=== PATIENT | female | born 2000 | race Caucasian/White ===

== ENCOUNTER 2020-02-08 16:50 | Emergency (ER) | payer OTHER, SELFPAY ==
[2020-02-08 17:42] LABS: Absolute Lymphocytes (CBC) 2.5 K/uL (0.7-4.9); Basophils % 0.9 % (0-1.3); Hematocrit 45.3 % (36.0-45.0); Lymphocytes % 36.1 % (15.3-44.8); RBC Red Blood Cell Count 5.07 M/uL (3.86-4.86)
[2020-02-08 18:02] LABS: ALT/SGPT 24 U/L (12-78); AST/SGOT 15 U/L (15-37); Albumin 4.3 g/dL (3.4-5.0); Alkaline Phosphatase 89 U/L (45-117); BUN Blood Urea Nitrogen 11 mg/dL (7-18); Bicarbonate 27 mmol/L (21-32); Bilirubin Direct 0.1 mg/dL (0-0.2); Bilirubin Total 0.4 mg/dL (0.2-1.0); Glucose Level 91 mg/dL (74-106); Lipase 82 U/L (73-393); Potassium 4.1 mmol/L (3.5-5.1); Sodium Level 139 mmol/L (136-145)
[2020-02-08 18:13] LABS: Urine Blood NEGATIVE (NEG); Urine Glucose NEGATIVE (NEG); Urine Protein NEGATIVE (NEG); Urine pH 5.5 (5.0-7.0)
[2020-02-08 18:13] LABS: Urine Amorphous Sediment 1+ /HPF (NONE SEEN); Urine Bacteria 20-50 /HPF (<20); Urine Culture Reflex Order REFLEXED; Urine Mucus 3+ /HPF (NONE SEEN); Urine RBC <5 /HPF (NONE SEEN)
--- NOTE | 2020-02-08 18:59 | RAD REPORT ---
EXAM DESCRIPTION: CT - Abdomen Pelvis W Contrast - 02/08/2020 6:31 pm CLINICAL HISTORY: RLQ abd pain COMPARISON: No comparisons TECHNIQUE: Biphasic, helical CT imaging of the abdomen and pelvis was performed following 100 ml non -ionic IV contrast. No oral contrast. All CT scans are performed using dose optimization technique as appropriate and may include automated exposure control or mA/KV adjustment according to patient size. FINDINGS: No suspicious findings in the lung bases. The liver, spleen, and pancreas show no suspicious findings. Gallbladder and biliary tree are also wi thout suspicious finding. Symmetric renal function is seen with no hydronephrosis or suspicious renal mass. No pyelonephritis o r acute parenchymal process. No bladder abnormalities. No adrenal abnormalities. Uterus and ovaries s how no suspicious findings. No gastric dilatation or wall thickening. No dilated large or small bowel loops. No appendicitis find ings. A few small mesenteric lymph nodes are present. There is a trace amount of stranding in the fat adjacent to the ascending colon. This is a minimal finding but could indicate a very mild epiploic a ppendagitis. No free air or pneumatosis. No abnormal free fluid collection. No hernia, mass or bulky lymphadenopathy. No suspicious bony findings. IMPRESSION: No appendicitis or surgically emergent finding. Patient has a few mesenteric lymph nodes in the right lower quadrant. Patient has a trace amount of stranding adjacent to the ascending colon. This is a very minimal find ing but may reflect a very mild epiploic appendagitis.
--- NOTE | 2020-02-08 19:43 | ER ---
Nurse's Notes [facility] Name: Belinda Partida Age: 19 yrs Sex: Female : 2000 Arrival Date: 02/08/2020 Time: 16:53 Bed 14 Private MD: Diagnosis: Unspecified abdominal pain Presentation: 02/07 17:00 Chief complaint: Patient states: RLQ pain radiating to back started 3 days ago, now iw radiating to leg , denies pain with urination, +nausea, no vomiting. Coronavirus screen: Patient denies fever greater than 100.4F, cough, shortness of breath, or difficulty breathing. Proceed with normal triage process. Ebola Screen: Patient negative for fever greater than or equal to 101.5 degrees Fahrenheit, and additional compatible Ebola Virus Disease symptoms Patient denies exposure to infectious person. Patient denies travel to an Ebola-affected area in the 21 days before illness onset. No symptoms or risks identified at this time. Initial Sepsis Screen: Does the patient meet any 2 criteria? No. Patient's initial sepsis screen is negative. Does the patient have a suspected source of infection? No. Patient's initial sepsis screen is negative. Risk Assessment: Do you want to hurt yourself or someone else? Patient reports no desire to harm self or others. 17:00 Method Of Arrival: Ambulatory iw 17:00 Acuity: RO 3 iw 17:41 Onset of symptoms was February 06, 2020. vc Triage Assessment: 17:39 General: Appears in no apparent distress. uncomfortable, Behavior is calm, cooperative, vc appropriate for age. Pain: Complains of pain in abdomen Pain radiates to back and down right leg. 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 - Social history:: Smoking status: Patient denies any tobacco usage or history of. - Family history:: not pertinent. - Hospitalizations: : No recent hospitalization is reported. Screenin:38 Abuse screen: Denies threats or abuse. Nutritional screening: No deficits noted. vc Tuberculosis screening: No symptoms or risk factors identified. Fall Risk None identified. Assessment: 17:30 General: Appears in no apparent distress. uncomfortable, ill, Behavior is calm, vc cooperative, appropriate for age. Pain: Complains of pain in abdomen Pain radiates to back and right leg. Neuro: No deficits noted. Level of Consciousness is awake, alert, obeys commands, Oriented to person, place, time. GI: Reports lower abdominal pain. : No signs and/or symptoms were reported regarding the genitourinary system. 18:30 Reassessment: Patient appears in no apparent distress at this time. Patient and/or vc family updated on plan of care and expected duration. Pain level reassessed. Patient is alert, oriented x 3, equal unlabored respirations, skin warm/dry/pink. 19:30 Reassessment: Patient appears in no apparent distress at this time. Patient and/or vc family updated on plan of care and expected duration. Pain level reassessed. Patient is alert, oriented x 3, equal unlabored respirations, skin warm/dry/pink. Patient states feeling better. Vital Signs: 17:00 BP 124 / 76; Pulse 99; Resp 16; Temp 97.9; Pulse Ox 98% on R/A; Weight 60.78 kg; Height iw 5 ft. 3 in. (160.02 cm); Pain 5/10; 18:30 BP 108 / 73; Pulse 67; Resp 15; Pulse Ox 99% ; vc 19:30 BP 112 / 65; Pulse 66; Resp 15; Pulse Ox 100% on R/A; vc 17:00 Body Mass Index 23.74 (60.78 kg, 160.02 cm) iw ED Course: 16:53 Patient arrived in ED. ag5 17:02 Triage completed. iw 17:04 Geovanny Reina MD is Attending Physician. rn 17:15 Taylor Dyer, BO is Primary Nurse. vc 17:20 Arm band placed on. vc 17:42 Patient has correct armband on for positive identification. Placed in gown. Bed in low vc position. Pulse ox on. NIBP on. 18:31 CT Abd/Pelvis - IV Contrast Only In Process Unspecified. EDMS 18:55 Kehinde Stone PA is PHCP. jmm 19:55 No provider procedures requiring assistance completed. IV discontinued, intact, vc bleeding controlled, No redness/swelling at site. Pressure dressing applied. Administered Medications: No medications were administered Outcome: 19:43 Discharge ordered by . sandra 20:00 Discharged to home ambulatory. 20:00 Condition: good 20:00 Discharge instructions given to patient, Instructed on discharge instructions, follow up and referral plans. medication usage, Demonstrated understanding of instructions, follow-up care, medications, Prescriptions given X 2. 20:01 Patient left the ED. vc Signatures: Dispatcher [employer] EDMS Kehinde Stone PA PA jmm Williams, Irene, RN RN Geovanny Llamas MD MD rn Gaskin, Ajare ag5 Taylor Dyer RN RN
--- NOTE | 2020-02-08 19:43 | EDPHYS ---
Physician Documentation [facility] Name: Belinda Partida Age: 19 yrs Sex: Female : 2000 Arrival Date: 02/08/2020 Time: 16:53 Bed 14 Private MD: ED Physician Geovanny Reina HPI: 02/07 17:44 This 19 yrs old Female presents to ER via Ambulatory with complaints of Low rn Back Pain, abd pain, Leg Pain. 17:44 The patient presents with abdominal pain right lower quadrant. Onset: The rn symptoms/episode began/occurred 2 day(s) ago. The symptoms radiate to back, right leg. Associated signs and symptoms: Pertinent positives: nausea, Pertinent negatives: anorexia, blood in stools, constipation, diarrhea, dysuria, fever, vaginal discharge, vomiting blood. The symptoms are described as sharp. Modifying factors: The symptoms are alleviated by nothing, the symptoms are aggravated by movement, touching the area. Severity of pain: At its worst the pain was mild in the emergency department the pain is unchanged. The patient has not experienced similar symptoms in the past. Reports RLQ abd pain, radiates to right low back and right leg, no trauma, no fever/vomiting/anorexia/diarrhea/blood in stool. Had tele medicine visit with pcp and told to come to ER for evaluation of appendicitis. Reports pain is mild.. 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 - Social history:: Smoking status: Patient denies any tobacco usage or history of. - Family history:: not pertinent. - Hospitalizations: : No recent hospitalization is reported. ROS: 17:44 Constitutional: Negative for fever, chills, and weight loss, Eyes: Negative for injury, rn pain, redness, and discharge, Cardiovascular: Negative for chest pain, palpitations, and edema, Respiratory: Negative for shortness of breath, cough, wheezing, and pleuritic chest pain, Abdomen/GI: + RLQ abd pain, neg for vomiting/diarrhea Back: + low back pain MS/Extremity: Negative for injury and deformity, Skin: Negative for injury, rash, and discoloration, Neuro: Negative for headache, weakness, numbness, tingling, and seizure. Exam: 17:44 Constitutional: This is a well developed, well nourished patient who is awake, alert, rn and in no acute distress. Head/Face: Normocephalic, atraumatic. Cardiovascular: Regular rate and rhythm. No pulse deficits. Respiratory: No increased work of breathing, no retractions or nasal flaring. Abdomen/GI: soft, + mild RLQ tenderness, no rebound Back: No spinal tenderness. No costovertebral tenderness. Full range of motion. MS/ Extremity: Pulses equal, no cyanosis. Neurovascular intact. Full, normal range of motion. Equal circumference. Neuro: Awake and alert, GCS 15, oriented to person, place, time, and situation. Cranial nerves II-XII grossly intact. Motor strength 5/5 in all extremities. Sensory grossly intact. Cerebellar exam normal. Normal gait. Vital Signs: 17:00 BP 124 / 76; Pulse 99; Resp 16; Temp 97.9; Pulse Ox 98% on R/A; Weight 60.78 kg; Height iw 5 ft. 3 in. (160.02 cm); Pain 5/10; 18:30 BP 108 / 73; Pulse 67; Resp 15; Pulse Ox 99% ; vc 19:30 BP 112 / 65; Pulse 66; Resp 15; Pulse Ox 100% on R/A; vc 17:00 Body Mass Index 23.74 (60.78 kg, 160.02 cm) iw MDM: 17:04 Patient medically screened. rn 19:42 Data reviewed: vital signs, nurses notes. Counseling: I had a detailed discussion with sandra the patient and/or guardian regarding: the historical points, exam findings, and any diagnostic results supporting the discharge/admit diagnosis, radiology results, the need for outpatient follow up, to return to the emergency department if symptoms worsen or persist or if there are any questions or concerns that arise at home. ED course: Patient is alert and non toxic in appearance in the ED. CT negative for appendicitis. Patient is given early appendicitis return precautions. Patient understood and agrees with the plan of care. . 02/07 17:13 Order name: Basic Metabolic Panel; Complete Time: 18:28 rn 02/07 17:13 Order name: CBC with Diff; Complete Time: 18:28 rn 02/07 17:13 Order name: Creatinine for Radiology; Complete Time: 18:28 rn 02/07 17:13 Order name: Hepatic Function; Complete Time: 18:28 rn 02/07 17:13 Order name: Lipase; Complete Time: 18:28 rn 02/07 17:13 Order name: Urine Microscopic Only; Complete Time: 18:28 rn 02/07 17:13 Order name: IV Saline Lock; Complete Time: 17:37 rn 02/07 17:13 Order name: Labs collected and sent; Complete Time: 17:37 rn 02/07 17:13 Order name: Urine Test (obtain specimen); Complete Time: 17:36 rn 02/07 17:13 Order name: Urine Dipstick-Ancillary (obtain specimen); Complete Time: 17:36 rn 02/07 17:13 Order name: CT Abd/Pelvis - IV Contrast Only; Complete Time: 19:03 rn 02/07 17:35 Order name: Urine Dipstick--Ancillary (enter results); Complete Time: 18:28 eb 02/07 17:35 Order name: Urine --Ancillary (enter results); Complete Time: 18:28 eb 02/07 18:14 Order name: Urine Culture EDMS Administered Medications: No medications were administered Disposition: 02/08 07:09 Co-signature as Attending Physician, Geovanny Reina MD. rn Disposition: 02/08/20 19:43 Discharged to Home. Impression: Unspecified abdominal pain. - Condition is Stable. - Discharge Instructions: Abdominal Pain, Adult. - Prescriptions for Bentyl 20 mg Oral Tablet - take 1 tablet by ORAL route every 6 hours As needed; 20 tablet. Cipro 500 mg Oral Tablet - take 1 tablet by ORAL route every 12 hours for 7 days; 14 tablet. - Medication Reconciliation Form, Thank You Letter, Antibiotic Education, Prescription Opioid Use form. - Follow up: Private Physician; When: 2 - 3 days; Reason: Recheck today's complaints, Continuance of care, Re-evaluation by your physician. Signatures: Dispatcher [employer] EDMS Kehinde Stone PA PA jmm Williams, Irene, RN RN iw Nieto, Roman, MD MD rn Calcote, Vanessa, RN RN vc Corrections: (The following items were deleted from the chart) 02/07 20:01 19:43 02/08/2020 19:43 Discharged to Home. Impression: Unspecified abdominal pain. vc Condition is Stable. Forms are Medication Reconciliation Form, Thank You Letter, Antibiotic Education, Prescription Opioid Use. Follow up: Private Physician; When: 2 - 3 days; Reason: Recheck today's complaints, Continuance of care, Re-evaluation by your physician. sandra
[2020-02-08 20:07] VITALS: TEMP 97.9
[2020-02-08 20:10] VITALS: BP 112/65; O2SAT 100
== END 2020-02-08 20:01 | disposition home or self-care (01) ==
LOC: ER 16:50
DX: R10.31 Right lower quadrant pain (principal)
CPT/HCPCS: 87088; 85025; 87086; 80048; 36415; 81025; 80076; 83690; 74177; 99283; Q9967; 81003; 81015